=== PATIENT | female | born 1985 | race Two or more races ===

== ENCOUNTER 2023-12-29 14:06 | Emergency (ER) | payer OTHER ==
[~2023-12-29] VITALS: Ht 157.5 cm; Wt 54.4 kg
[2023-12-29] MEDS: ACETAMINOPHEN ES 500 MG TABLET PO ONE (15:30)
[2023-12-29] MEDS: TRAMADOL HCL 50 MG TABLET PO ONE (15:30)
[2023-12-29] MEDS ORDERED: TRAMADOL HCL 50 MG TABLET ONE (15:38)
[2023-12-29] MEDS ORDERED: ACETAMINOPHEN ES 500 MG TABLET ONE (15:38)
[2023-12-29 16:09] VITALS: BP 121/61; TEMP 97.9; O2SAT 98
== END 2023-12-29 16:10 | disposition home or self-care (01) ==
LOC: ER 14:15
DX: S09.90XA Unspecified injury of head, initial encounter (principal); V43.52XA Car driver injured in collision with other type car in traffic accident, initial encounter; Y93.89 Activity, other specified; Y92.89 Other specified places as the place of occurrence of the external cause; Y99.8 Other external cause status
CPT/HCPCS: 70450-TC; 72125-TC